=== PATIENT | male | born 1975 ===

== ENCOUNTER 2019-10-08 08:44 | Emergency (ER) | payer BC ==
--- NOTE | 2019-10-08 10:06 | CR ---
Lumbar spine: AP, lateral and coned-down lateral view centered to the lumbosacral junction were obtained. Vertebral body heights and disc spaces are maintained within the lumbar spine. Mild scattered anterior endplate osteophytes are seen. Minimal anterior wedging is noted of L1 which is believed to be developmental. Pedicles are intact. Transverse and spinous processes also appear intact. Sacroiliac joints appear within normal limits. Impression: 1. Minimal degenerative change as noted above. Diagnostic code #2 This report was dictated in [place] Standard Time
--- NOTE | 2019-10-08 11:09 | EDM.PDOC ---
ED HPI GENERAL MEDICAL PROBLEM - General Chief Complaint: Back Pain or Injury Stated Complaint: PT FELL ON ICE AND INJURED BACK Time Seen by Provider: 10/08/19 11:08 Source of Information: Reports: Patient - History of Present Illness INITIAL COMMENTS - FREE TEXT/NARRATIVE: HISTORY AND PHYSICAL: History of present illness: [Cabezas fell landing on his back he had slipped on the steps exiting his house landing on the lumbar spine superficial abrasion is present at L4-L5 level no head injury or loss of consciousness no fever nausea vomiting chills sweats no radiation pain 5 out of 10 nonradiating colopathy no footdrop saddle anesthesia bowel or urine symptoms ] Review of systems: As per history of present illness and below otherwise all systems reviewed and negative. Past medical history: As per history of present illness and as reviewed below otherwise noncontributory. Surgical history: As per history of present illness and as reviewed below otherwise noncontributory. Social history: No reported history of drug or alcohol abuse. Family history: As per history of present illness and as reviewed below otherwise noncontributory. Physical exam: HEENT: Atraumatic, normocephalic, pupils reactive, negative for conjunctival pallor or scleral icterus, mucous membranes moist, throat clear, neck supple, nontender, trachea midline. Lungs: Clear to auscultation, breath sounds equal bilaterally, chest nontender. Heart: S1S2, regular, negative for clicks, rubs, or JVD. Abdomen: Soft, nondistended, nontender. Negative for masses or hepatosplenomegaly. Negative for costovertebral tenderness. Pelvis: Stable nontender. Genitourinary: Deferred. Rectal: Deferred. Extremities: Atraumatic, negative for cords or calf pain. Neurovascular unremarkable. Neuro: Awake, alert, oriented. Cranial nerves II through XII unremarkable. Cerebellum unremarkable. Motor and sensory unremarkable throughout. Exam nonfocal. Diagnostics: [LSpine ] Therapeutics: [Space ibuprofen Flexeril ] Impression: paraspinous muscle spasm] Definitive disposition and diagnosis as appropriate pending reevaluation and review of above. Middle BAck Pain Score (Numeric/FACES): 10 - Related Data Allergies Allergy/AdvReac Type Severity Reaction Status Date / Time No Known Allergies Allergy Verified 10/08/19 09:09 Home Meds: Home Meds Lisinopril 10 mg PO DAILY 12/22/13 [History] metFORMIN [Glucophage] 1,000 mg PO BIDM 12/22/13 [History] Dapagliflozin Propanediol [Farxiga] 5 mg PO DAILY 10/08/19 [History] atorvaSTATin [Lipitor] 10 mg PO DAILY 10/08/19 [History] Past Medical History - Past Health History Medical/Surgical History: Denies Medical/Surgical History Cardiovascular History: Reports: High Cholesterol, Hypertension Endocrine/Metabolic History: Reports: Diabetes, Type II Social & Family History - Family History Family Medical History: Noncontributory - Tobacco Use Smoking Status *Q: Current Every Day Smoker Years of Tobacco use: 28 Packs/Tins Daily: 1 - Caffeine Use Caffeine Use: Reports: Coffee, Energy Drinks - Recreational Drug Use Recreational Drug Use: No ED ROS GENERAL - Review of Systems Review Of Systems: See Below ED EXAM, GENERAL - Physical Exam Exam: See Below Course - Vital Signs Last Recorded V/S: Last Vital Signs Temp 97.1 F 10/08/19 09:06 Pulse 61 10/08/19 09:06 Resp 18 10/08/19 09:06 BP 105/63 10/08/19 09:06 Pulse Ox 96 10/08/19 09:06 Departure - Departure Time of Disposition: 11:10 Disposition: Home, Self-Care 01 Condition: Good Clinical Impression: Contusion, Paraspinal muscle spasm - Discharge Information Referrals: PCP,None [Primary Care Provider] - Forms: ED Department Discharge Additional Instructions: Medication as prescribed Return if symptoms persist or worsen Rest ice ibuprofen as discussed Primary care in 2 weeks sooner as needed [facility] - Primary Care [address] [place] [id number] The following information is given to patients seen in the emergency department who are being discharged to home. This information is to outline your options for follow-up care. We provide all patients seen in our emergency department with a follow-up referral. The need for follow-up, as well as the timing and circumstances, are variable depending upon the specifics of your emergency department visit. If you don't have a primary care physician on staff, we will provide you with a referral. We always advise you to contact your personal physician following an emergency department visit to inform them of the circumstance of the visit and for follow-up with them and/or the need for any referrals to a consulting specialist. The emergency department will also refer you to a specialist when appropriate. This referral assures that you have the opportunity for follow-up care with a specialist. All of these measure are taken in an effort to provide you with optimal care, which includes your follow-up. Under all circumstances we always encourage you to contact your private physician who remains a resource for coordinating your care. When calling for follow-up care, please make the office aware that this follow-up is from your recent emergency room visit. If for any reason you are refused follow-up, please contact the [facility] emergency department at and asked to speak to the emergency department charge nurse. Sepsis Event Note - Evaluation Sepsis Screening Result: No Definite Risk - Focused Exam Vital Signs: Vital Signs Temp Pulse Resp BP Pulse Ox 10/08/19 09:06 97.1 F 61 18 105/63 96 Date Exam was Performed: 10/08/19 Time Exam was Performed: 11:10
== END 2019-10-08 11:30 | disposition home or self-care (01) ==
LOC: MW.ED 08:44
DX: S30.0XXA Contusion of lower back and pelvis, initial encounter (principal); I10 Essential (primary) hypertension; E11.9 Type 2 diabetes mellitus without complications; E78.00 Pure hypercholesterolemia, unspecified; F17.210 Nicotine dependence, cigarettes, uncomplicated; Z79.84 Long term (current) use of oral hypoglycemic drugs; Z79.899 Other long term (current) drug therapy; W10.8XXA Fall (on) (from) other stairs and steps, initial encounter
CPT/HCPCS: 72100; 72100-26; 99283; 99283-25